=== PATIENT | female | born 1935 | race Caucasian/White ===

== ENCOUNTER 2016-12-28 17:18 | Emergency (ER) | payer MEDICARE, MEDICAID ==
[~2016-12-28] VITALS: Ht 152.4 cm; Wt 74.8 kg
[2016-12-28] MEDS ORDERED: OXYMETAZOLINE HCL NASAL SPRAY 30 ML BOTTLE NS ONE ×2 (17:42→18:00)
[2016-12-28 18:07] LABS: BASOPHILS % (AUTO) 0.5 % (0.0-2.0); DIFF TOTAL % 100 %; EOSINOPHILS # (AUTO) 0.1 /CMM (0.0-0.7); EOSINOPHILS % (AUTO) 2.7 % (0.0-6.0); HEMATOCRIT 42 % (33-45); HEMOGLOBIN 13.9 g/dL (11.5-14.8); LYMPHOCYTES # (AUTO) 1.7 /CMM (0.8-4.8); LYMPHOCYTES % (AUTO) 30.7 % (20.0-44.0); MEAN CORPUSCULAR HEMOGLOBIN 31 PG (26.0-33.0); MEAN CORPUSCULAR HGB CONC 33 g/dl (31.0-36.0); MEAN CORPUSCULAR VOLUME 93 fL (82-100); MONOCYTES # (AUTO) 0.2 /CMM (0.1-1.30); MONOCYTES % (AUTO) 3.6 % (2.0-12.0); NEUTROPHILS # (AUTO) 3.5 /CMM (1.8-8.9); NEUTROPHILS % (AUTO) 62.5 % (43.0-81.0); PLATELET COUNT (AUTO) 257 /CMM (150-450); RED BLOOD CELL COUNT(AUTO) 4.52 MIL/uL (4.0-5.2); WHITE BLOOD COUNT (AUTO) 5.5 K/uL (4.3-11.0)
[2016-12-28 18:14] LABS: CALCIUM, SERUM 8.6 mg/dL (8.5-10.1); CREATININE 1.4 mg/dL (0.6-1.3); POTASSIUM 3.6 mmol/L (3.5-5.1)
[2016-12-28 18:18] LABS: INR 0.96 (0.87-1.13); PROTHROMBIN TIME 10.1 SECS (9.5-12.7)
[2016-12-28] MEDS ORDERED: VALSARTAN 80 MG TABLET ONE (18:54)
[2016-12-28] MEDS ORDERED: VALSARTAN 80 MG TABLET PO ONE (19:00)
[2016-12-28 20:28] VITALS: BP 157/103
== END 2016-12-28 20:28 | disposition home or self-care (01) ==
LOC: ER 17:20
DX: R04.0 Epistaxis (principal); I10 Essential (primary) hypertension
CPT/HCPCS: 30903; 36415; 80048; 85025; 85730; 99284; A4606; Z7610

== ENCOUNTER 2018-05-26 09:54 | Inpatient (IN) | payer MEDICARE, MEDICAID ==
[~2018-05-26] VITALS: Ht 165.1 cm; Wt 78.9 kg
--- NOTE | 2018-05-26 10:00 | NUR ---
AAOX3, BIBRA 88 FROM HOME C/O HYPERTENSION AND DIZZINESS X 2 DAYS. PATIENT STATES THE IT FEELS LIKE "ROOM IS SPINNING". RR IS EVEN AND UNLABORED WITH NAD NOTED. SKIN IS WARM AND DRY. AWAITING MD FOR EVAL.
[2018-05-26] MEDS ORDERED: IV NS 0.9% 1,000 ML BAG IV ONE (10:30)
[2018-05-26 10:32] LABS: BASOPHILS % (AUTO) 0.5 % (0.0-2.0); EOSINOPHILS % (AUTO) 2.3 % (0.0-6.0); HEMATOCRIT 41 % (33-45); HEMOGLOBIN 13.3 g/dL (11.5-14.8); LYMPHOCYTES % (AUTO) 22.4 % (20.0-44.0); MEAN CORPUSCULAR HEMOGLOBIN 30 PG (26.0-33.0); MEAN CORPUSCULAR HGB CONC 32 g/dl (31.0-36.0); MEAN CORPUSCULAR VOLUME 93 fL (82-100); MONOCYTES # (AUTO) 0.2 /CMM (0.1-1.30); NEUTROPHILS # (AUTO) 3.3 /CMM (1.8-8.9); NEUTROPHILS % (AUTO) 70.8 % (43.0-81.0); PLATELET COUNT (AUTO) 274 /CMM (150-450); RDW COEFFICIENT OF VARIATION 13.6 (11.5-15.0); RED BLOOD CELL COUNT(AUTO) 4.45 MIL/uL (4.0-5.2); WHITE BLOOD COUNT (AUTO) 4.6 K/uL (4.3-11.0)
[2018-05-26 10:38] LABS: CALCIUM, SERUM 8.4 mg/dL (8.5-10.1); CARBON DIOXIDE 30 mmol/L (21-32); CHLORIDE 103 mmol/L (98-107); GLUCOSE 153 mg/dL (74-106); POTASSIUM 3.6 mmol/L (3.5-5.1); SODIUM SERUM 137 mmol/L (136-145); UREA NITROGEN, BLOOD 18 mg/dL (7-18)
[2018-05-26 10:42] LABS: INR 0.98 (0.85-1.15)
--- NOTE | 2018-05-26 10:45 | NUR ---
PATIENT WAS ASSISTED AND AMBULATES TO THE RESTROOM BY ANN MUKHERJEE.
[2018-05-26 10:46] LABS: TROPONIN I < 0.017 ng/mL (0.00-0.056)
--- NOTE | 2018-05-26 10:53 | NUR ---
PATIENT TRANSPORTED TO CT HEAD VIA GURNEY. PATIENT REMAINS IN STABLE CONDITION AT THIS TIME.
[2018-05-26] MEDS ORDERED: LABETALOL HCL (100MG) 100 MG TABLET PO ONE (11:00)
[2018-05-26] MEDS ORDERED: LABETALOL HCL IV 100MG VIAL IV ONE (11:00)
[2018-05-26] MEDS ORDERED: LABETALOL HCL IV 100MG VIAL ONE (11:10)
[2018-05-26] MEDS ORDERED: LABETALOL HCL (100MG) 100 MG TABLET ONE (11:11)
[2018-05-26] MEDS ORDERED: DEXL60CA3 PO (11:27)
[2018-05-26] MEDS ORDERED: ROSU10TA PO (11:27)
[2018-05-26] MEDS ORDERED: VALS160T2 PO (11:27)
[2018-05-26] MEDS ORDERED: APIX5TAB PO (11:27)
[2018-05-26] MEDS ORDERED: LEVO50TA8 PO (11:27)
[2018-05-26] MEDS ORDERED: TRIA1CAP6 PO (11:27)
[2018-05-26] MEDS ORDERED: AMIO200T4 PO (11:27)
[2018-05-26] MEDS ORDERED: DOXA4TAB2 PO (11:27)
[2018-05-26] MEDS ORDERED: CHOL50004 PO (11:31)
[2018-05-26] MEDS ORDERED: MAGN200T5 PO (11:31)
[2018-05-26] MEDS ORDERED: hydrALAZINE HCL IV 20 MG VIAL IV ONE (12:00)
[2018-05-26] MEDS ORDERED: ASPIRIN 81 MG TAB.CHEW PO ONE (12:00)
[2018-05-26] MEDS ORDERED: hydrALAZINE HCL IV 20 MG VIAL ONE (12:11)
[2018-05-26] MEDS ORDERED: ASPIRIN 81 MG TAB.CHEW ONE (12:12)
--- NOTE | 2018-05-26 12:28 | NUR ---
PAGED DR. GOMES OFFICE (PATIENT FOAM RUBBER MIXER) - LEFT VOICEMAIL
--- NOTE | 2018-05-26 12:33 | NUR ---
DR. GOMES (PATIENT ON SITE PROPERTY MANAGER) [phone]
--- NOTE | 2018-05-26 13:44 | NUR ---
PAGED EPIC FOR PANEL - HOME APPRAISER IS DR. KILLIAN
--- NOTE | 2018-05-26 13:51 | NUR ---
CALLED NURSE SUP FOR TELE BED
--- NOTE | 2018-05-26 14:27 | NUR ---
Report given to MARÍA ELENA Corea going to TELE [phone]
[2018-05-26] MEDS ORDERED: HYDROCODONE/APAP 5/325MG 1 EACH TABLET PO PRN (14:30)
[2018-05-26] MEDS ORDERED: ONDANSETRON HCL/PF 4 MG/2 ML VIAL IVP PRN (14:30)
[2018-05-26] MEDS ORDERED: ACETAMINOPHEN 325 MG TABLET PO PRN (14:30)
[2018-05-26] MEDS ORDERED: MAGNESIUM HYDROXIDE 30 ML UDC PO PRN (14:30)
[2018-05-26] MEDS ORDERED: ZOLPIDEM TARTRATE 5 MG TABLET PO PRN (14:30)
[2018-05-26] MEDS ORDERED: Z GUARD REMEDY 2 OZ OINT TP PRN (14:30)
[2018-05-26] MEDS ORDERED: MAG HYDROX/AL HYDROX/SIMETH 30 ML UDC PO PRN (14:30)
[2018-05-26] MEDS ORDERED: TRIAMTERENE/HYDROCHLOROTHIAZID (37.5/25MG) 1 UDCAP PO SCH (14:30)
[2018-05-26 14:45] VITALS: BP 181/87
--- NOTE | 2018-05-26 14:45 | NUR ---
TRACK FITTER RECEIVED PT. IN [facility] A&OX. PT. IS ON TELE MONITOR IN STABLE CONDITION, AND PT.'S SON IS ALONGSIDE.
[2018-05-26] MEDS ORDERED: DOXAZOSIN MESYLATE (4 MG) 4 MG TABLET PO PRN (15:30)
[2018-05-26 16:00] VITALS: BP 166/77
[2018-05-26] MEDS ORDERED: AMIODARONE HCL 200 MG TABLET PO ONE (16:30)
[2018-05-26] MEDS: MAGNESIUM OXIDE 400 MG TABLET PO SCH (17:21)
[2018-05-26] MEDS: APIXABAN 5 MG TABLET PO SCH (17:21)
--- NOTE | 2018-05-26 19:35 | NUR ---
RN OPENING NOTES RECEIVED REPORT FROM DAYSHIFT YURI ROBLERO. FOUND Pt AWAKE, RESTING IN BED. NO S/S OF ACUTE DISTRESS OR SOB NOTED. Pt IS A/OX3, FAROESE SPEAKING, BUT CAN UNDERSTAND SOME [place]UR[place]; IS ABLE TO COMMUNICATE HER NEEDS IF NEEDED. ON TELE MONITOR, WITH SR. IV ACCESS ON LAC #20G, SL. SAFETY MEASURES IN PLACE. BED LOW, LOCKED, HOB ELEVATED, SIDE RAILS UP, CALL LIGHT AND BEDSIDE TABLE WITHIN REACH. WILL CONTINUE TO MONITOR Pt THROUGHOUT THE NIGHT FOR SAFETY.
--- NOTE | 2018-05-26 19:50 | NUR ---
RN CLOSING NOTES PT. IS IN BED A&OX4. BREATHING UNLABORED AND EVENLY ON ROOM AIR. NO S/S OF ACUTE DISTRESS. BED IS IN LOWEST, AND LOCKED POSITION. 2 SIDE RAILS UP, AND INSTRUCTED PT. TO USE CALL LIGHT WITHIN REACH. ALL NEEDS MET AT THIS TIME.
[2018-05-26 20:00] VITALS: BP 160/88
[2018-05-27] VITALS: BP 187/81
[2018-05-27 04:00] VITALS: BP 151/83
--- NOTE | 2018-05-27 06:00 | NUR ---
RN NOTES RETURNED TAMELA. Pt CHANGED HER MIND AND NO LONGER WANTED TO TAKE IT.
--- NOTE | 2018-05-27 06:30 | NUR ---
RN CLOSING NOTES NO SIGNIFICANT CHANGES IN Pt's CONDITION. Pt REMAINS STABLE AT THIS TIME. NO S/S OF ACUTE DISTRESS OR SOB NOTED DURING THE NIGHT. Pt's LATEST BP 151/83. ALL NEEDS MET AND ATTENDED TO. SAFETY MEASURES IN PLACE. BED LOW, LOCKED, HOB ELEVATED, SIDE RAILS UP, CALL LIGHT AND BEDSIDE TABLE WITHIN REACH. WILL ENDORSE TO DAYSHIFT RN FOR Pt's TETO.
[2018-05-27 07:03] LABS: BASOPHILS % (AUTO) 0.1 % (0.0-2.0); EOSINOPHILS % (AUTO) 1.1 % (0.0-6.0); HEMATOCRIT 39 % (33-45); HEMOGLOBIN 13.1 g/dL (11.5-14.8); LYMPHOCYTES # (AUTO) 1.2 /CMM (0.8-4.8); LYMPHOCYTES % (AUTO) 20.3 % (20.0-44.0); MEAN CORPUSCULAR HEMOGLOBIN 32 PG (26.0-33.0); MEAN CORPUSCULAR HGB CONC 34 g/dl (31.0-36.0); MEAN CORPUSCULAR VOLUME 94 fL (82-100); MONOCYTES # (AUTO) 0.2 /CMM (0.1-1.30); MONOCYTES % (AUTO) 3.4 % (2.0-12.0); NEUTROPHILS # (AUTO) 4.3 /CMM (1.8-8.9); NEUTROPHILS % (AUTO) 75.1 % (43.0-81.0); PLATELET COUNT (AUTO) 248 /CMM (150-450); RDW COEFFICIENT OF VARIATION 14.2 (11.5-15.0); RED BLOOD CELL COUNT(AUTO) 4.15 MIL/uL (4.0-5.2); WHITE BLOOD COUNT (AUTO) 5.7 K/uL (4.3-11.0)
[2018-05-27 07:11] LABS: CALCIUM, SERUM 8.6 mg/dL (8.5-10.1); CARBON DIOXIDE 25 mmol/L (21-32); CHLORIDE 104 mmol/L (98-107); CHOLESTEROL 238 mg/dL (<200); CREATININE 1.1 mg/dL (0.6-1.3); GLUCOSE 138 mg/dL (74-106); HDL CHOLESTEROL 85 mg/dL (40-60); LDL 139 mg/dL (0-99); MAGNESIUM 2.2 mg/dL (1.8-2.4); PHOSPHORUS 4.3 mg/dL (2.5-4.9); POTASSIUM 3.6 mmol/L (3.5-5.1); SODIUM SERUM 138 mmol/L (136-145); TRIGLYCERIDES 59 mg/dL (30-150); UREA NITROGEN, BLOOD 18 mg/dL (7-18)
[2018-05-27] MEDS: LEVOTHYROXINE SODIUM 50 MCG TABLET PO SCH (07:30)
[2018-05-27] MEDS: PANTOPRAZOLE 40 MG TABLET.DR PO SCH (07:30)
--- NOTE | 2018-05-27 07:31 | NUR ---
TELE/RN OPENING NOTE PATIENT IS RECEIVED IN BED. ALERT AND ORIENTED X3. DENIES SOB. RESPIRATION REGULAR AND UNLABORED. DENIES PAIN. DENIES DIZZINESS. PATIENT IN NO APPARENT DISTRESS. LAC G 20 PATENT AND SALINE LOCKED. VERBAL CUES ARE GIVEN TO KEEP SAFETY AWARENESS HIGH. BED LOW AND LOCKED. SIDE RAILS UP X3. CALL LIGHT WITHIN REACH. WILL CONTINUE TO MONITOR.
--- NOTE | 2018-05-27 07:47 | NUR ---
TELE/RN NOTE PATIENT ON TELE MONITORING SHOWING SR 76.
[2018-05-27 08:00] VITALS: BP 105/72
[2018-05-27] MEDS: AMIODARONE HCL 200 MG TABLET PO SCH (09:00)
[2018-05-27] MEDS: APIXABAN 5 MG TABLET PO SCH ×2 (09:00→16:47)
[2018-05-27] MEDS: ATORVASTATIN 10 MG TABLET PO SCH (09:00)
[2018-05-27] MEDS: CHOLECALCIFEROL 1,000 UNIT TABLET (VIT D3) PO SCH (09:00)
[2018-05-27] MEDS: MAGNESIUM OXIDE 400 MG TABLET PO SCH ×2 (09:00→16:46)
[2018-05-27] MEDS: VALSARTAN 80 MG TABLET PO SCH (09:00)
--- NOTE | 2018-05-27 09:52 | NUR ---
NOTE PATIENT IS SEEN BY DR LA WITH NPO ORDER. NOTED AND CARRIED OUT.
--- NOTE | 2018-05-27 09:59 | NUR ---
NOTE MORNING MEDICATIONS NOT GIVEN DUE TO NPO FOR DIAGNOSIS.
[2018-05-27] MEDS ORDERED: REGADENOSON 0.4 MG/5 ML DISP.SYRIN IVP ONE (12:27)
--- NOTE | 2018-05-27 13:20 | NUR ---
MS/RN NOTE NEW DIET ORDER IS RECEIVED FROM DR KILLIAN. NOTED AND CARRIED OUT.
[2018-05-27 13:39] VITALS: BP 141/75
[2018-05-27 16:00] VITALS: BP 112/67
--- NOTE | 2018-05-27 18:32 | NUR ---
MS/RN CLOSING NOTE PATIENT ALERT AND ORIENTED X3. DENIES SOB. RESPIRATION REGULAR AND UNLABORED. DENIES PAIN. PATIENT IN NO APPARENT DISTRESS. LAC G 20 PATENT AND SALINE LOCKED. PATIENT ABLE TO AMBULATE WITH STAND BY ASSIST AND FWW. VERBAL CUES ARE GIVEN TO KEEP SAFETY AWARENESS HIGH. BED LOW AND LOCKED. SIDE RAILS UP X3. CALL LIGHT WITHIN REACH. WILL ENDORSE TO LEAD ADVISOR.
--- NOTE | 2018-05-27 19:35 | NUR ---
MS RN OPENING NOTES PATIENT A/O X3. DENIES CHEST PAIN OR SOB. RESPIRATION REGULAR AND UNLABORED. LAC G 20 S/L PATENT AND INTACT. PATIENT AMBULATES WITH ASSIST. PT MALIAN SPEAKER ONLY. BED IN LOW AND LOCKED POSITION. SIDE RAILS UP X3. CALL LIGHT WITHIN REACH. WILL CONTINUE TO MONITOR .
[2018-05-27 20:00] VITALS: BP 147/84
--- NOTE | 2018-05-28 07:09 | NUR ---
MS RN OPENING RECEIVED BEDSIDE SBR REPORT ON THE PATIENT. PATIENT IS A/O X3, ASLEEP, EASILY AWAKEN IN BED. BED IS LOCKED IN LOWEST POSITION, SIDE RAILS UP X2, CALL LIGHT WITHIN REACH. PATIENT IS AMBULATORY AND ORIENTED TO OWN ABILITIES. EDUCATED TO USE THE CALL LIGHT TO CALL FOR ASSISTANCE. PATIENT VERBALIZED UNDERSTANDING. CHEST RISING EQUALLY/BILATERALLY. SPO2 97% ON RA. DENIES PAIN/DISCOMFORT AT THIS TIME. WILL CONTINUE TO ASSES/MONITOR THROUGHOUT THE SHIFT.
[2018-05-28 07:11] LABS: BASOPHILS % (AUTO) 0.2 % (0.0-2.0); EOSINOPHILS % (AUTO) 3.5 % (0.0-6.0); HEMATOCRIT 40 % (33-45); HEMOGLOBIN 13.3 g/dL (11.5-14.8); LYMPHOCYTES # (AUTO) 2.2 /CMM (0.8-4.8); LYMPHOCYTES % (AUTO) 35.3 % (20.0-44.0); MEAN CORPUSCULAR HEMOGLOBIN 31 PG (26.0-33.0); MEAN CORPUSCULAR HGB CONC 33 g/dl (31.0-36.0); MEAN CORPUSCULAR VOLUME 95 fL (82-100); MONOCYTES # (AUTO) 0.4 /CMM (0.1-1.30); MONOCYTES % (AUTO) 6.8 % (2.0-12.0); NEUTROPHILS # (AUTO) 3.4 /CMM (1.8-8.9); NEUTROPHILS % (AUTO) 54.2 % (43.0-81.0); PLATELET COUNT (AUTO) 259 /CMM (150-450); RDW COEFFICIENT OF VARIATION 14.4 (11.5-15.0); RED BLOOD CELL COUNT(AUTO) 4.23 MIL/uL (4.0-5.2); WHITE BLOOD COUNT (AUTO) 6.2 K/uL (4.3-11.0)
[2018-05-28 07:28] LABS: CALCIUM, SERUM 8.6 mg/dL (8.5-10.1); CARBON DIOXIDE 27 mmol/L (21-32); CHLORIDE 104 mmol/L (98-107); CREATININE 1.2 mg/dL (0.6-1.3); GLUCOSE 123 mg/dL (74-106); POTASSIUM 3.5 mmol/L (3.5-5.1); SODIUM SERUM 141 mmol/L (136-145); UREA NITROGEN, BLOOD 25 mg/dL (7-18)
--- NOTE | 2018-05-28 07:34 | NUR ---
MS RN CLOSING NOTES PATIENT A/O X3. DENIES CHEST PAIN OR SOB. RESPIRATION REGULAR AND UNLABORED. LAC G 20 S/L PATENT AND INTACT. PATIENT AMBULATES WITH WALKER. BED IN LOW AND LOCKED POSITION. SIDE RAILS UP X3. CALL LIGHT WITHIN REACH. POSSIBLE D/C TODAY. WILL ENDORSE TO NEXT SHIFT FOR TETO.
[2018-05-28 08:00] VITALS: BP 147/84
--- NOTE | 2018-05-28 08:13 | NUR ---
DOCUMENTED [place] NON-ADMINISTERED TO RID OF THE RED PASSED DUE REMINDER
[2018-05-28] MEDS: LEVOTHYROXINE SODIUM 50 MCG TABLET PO SCH (08:19)
[2018-05-28] MEDS: PANTOPRAZOLE 40 MG TABLET.DR PO SCH (08:20)
[2018-05-28] MEDS: CHOLECALCIFEROL 1,000 UNIT TABLET (VIT D3) PO SCH (08:21)
[2018-05-28] MEDS: ATORVASTATIN 10 MG TABLET PO SCH (08:22)
[2018-05-28] MEDS: MAGNESIUM OXIDE 400 MG TABLET PO SCH (08:22)
[2018-05-28] MEDS: AMIODARONE HCL 200 MG TABLET PO SCH (08:22)
[2018-05-28] MEDS: VALSARTAN 80 MG TABLET PO SCH (08:23)
[2018-05-28] MEDS: APIXABAN 5 MG TABLET PO SCH (08:23)
[2018-05-28] MEDS ORDERED: AMLODIPINE BESYLATE 10 MG TABLET PO SCH (09:00)
[2018-05-28] MEDS ORDERED: AMLO10TA2 PO (11:45)
--- NOTE | 2018-05-28 12:03 | NUR ---
DISCHARGE ORDER RECEIVED. DISCHARGE EDUCATION PROVIDED TO PATIENT AT THE BEDSIDE. PATIENT VERBALIZED UNDERSTANDING. VS WNL. SKIN IS INTACT. PATIENT CALLED THE SON ALVARO TO FIND OUT WHEN WILL HE BE ABLE TO PICK HER UP
[2018-05-28 16:00] VITALS: BP 137/69
--- NOTE | 2018-05-28 17:19 | NUR ---
IV CATHETER REMOVED WITH THE TIP INTACT. OCLUSIVE DRESSING APPLIED. ALL BELONGINGS ACCOUNTED FOR. DISCHARGE PAPERS AND DR. LONG'S BUSINESS CARD GIVEN TO THE PATIENT AND THE FAMILY. PATIENT LEFT THE HOSPITAL IN STABLE CONDITION COMPANNIED BY THE SON AND THE .
== END 2018-05-28 16:00 | disposition home or self-care (01) | DRG 305 ==
LOC: ER 09:55 → TELE 14:22 → MED 05-27 10:09
PROVIDERS: ADMIT Family Medicine; ATTEND Family Medicine
DX: I16.0 Hypertensive urgency (principal); D68.59 Other primary thrombophilia; F41.9 Anxiety disorder, unspecified; E03.9 Hypothyroidism, unspecified; E78.5 Hyperlipidemia, unspecified; I10 Essential (primary) hypertension; I48.91 Unspecified atrial fibrillation; Z79.899 Other long term (current) drug therapy; Z91.14 Patient's other noncompliance with medication regimen; Z86.711 Personal history of pulmonary embolism; Z82.49 Family history of ischemic heart disease and other diseases of the circulatory system; Z68.29 Body mass index [BMI] 29.0-29.9, adult; E66.9 Obesity, unspecified
CPT/HCPCS: 36415; 70450-TC; 71045-TC; 80048-TC; 80061-TC; 83735-TC; 84100-TC; 84484-TC; 85025-TC; 85730-TC; 87081-TC; A4606; A9502; J0360; J2785; J3490; J7030; Z7610